=== PATIENT | female | born 1980 | race Hispanic/Latino ===

== ENCOUNTER → 2024-08-30 | Day surgery (SDC) | payer BC ==
[~2024-08-30] MED LIST: ACETAMINOPHEN-1 EAC4 PO; FENTANYL CITRATE/PF 100MCG/2 ML INJ ONE; KETAMINE 50MG/5ML SYR ONE; LIDOCAINE HCL 2% LOCAL INJ 5 ML SDV VIAL INJ ONE; MIDAZOLAM HCL 2 MG/2 ML VIAL ONE; PROPOFOL IV EMULSION 10 MG/ML 20 ML VIAL ONE; SEVOFLURANE INHAL SOLN 250 ML PEN BTL ONE
[2024-08-30] MEDS: LACTATED RINGER'S 1,000 ML ONE (06:28)
[2024-08-30 07:13] VITALS: TEMP 97
[2024-08-30 07:45] VITALS: BP 127/80; PULSE 72; RESP 14; O2SAT 94
== END | disposition home or self-care (01) ==
LOC: OR 05:32
PROVIDERS: ATTEND Plastic Surgery
DX: B35.1 Tinea unguium (principal); E66.9 Obesity, unspecified
CPT/HCPCS: 11730; 36415; 84702; J0690; J2003; J2250; J2704; J3010; J7121